=== PATIENT | female | born 1950 | race Caucasian/White ===

== ENCOUNTER 2021-02-09 22:26 | Emergency (ER) | payer OTHER ==
[~2021-02-09 22:26] MED LIST: ACETAMINOPHN-12.5 ML PO; CALCIUM + VITA1 EACH PO; CELEBREX **OUT100 MG PO; CHLORTHALIDONE25 MG PO; COZAAR 25MG TAB25 MG PO; CYMBALTA 30MG C30 MG PO; FOSAMAX70 MG PO; GLIMEPIRIDE4 MG PO; LEVAQUIN750 MG PO; NEURONTIN100 MG PO; PRAVACHOL20 M1 PO; SYNTHROID100 MCG PO; TENORMIN50 MG PO; XARELTO10 MG PO; ZOFRAN4 MG PO; ZPAK PO
[2021-02-09 23:47] LABS: BASOPHIL 0.7 % (0-2); EOSINOPHIL 2.9 % (0-7); HCT 38.5 % (37.0-47.0); HGB 12.4 g/dl (12.5-16.0); MCH 31.1 pg (25.0-31.0); MCHC 32.2 g/dL (32.0-36.0); MCV 96.5 fL (78.0-100.0); MONOCYTE 11.6 % (0-12); MPV 10.5 fL (6.0-9.5); NEUTROPHIL 70.3 % (41-80); NRBC 0; PLT 256 K/uL (150-400); RBC 3.99 M/uL (4.20-5.40); RDW 13.7 % (11.5-14.0); WBC 10.5 K/uL (4.0-10.5)
[2021-02-09 23:48] LABS: BILIRUBIN 1+ mg/dL (NEGATIVE); BLOOD NEGATIVE Ery/uL (NEGATIVE); CLARITY CLOUDY (CLEAR); COLOR ORANGE (YELLOW); GLUCOSE (U) NORMAL (NORMAL); LEUKOCYTES NEGATIVE Leu/uL (NEGATIVE); NITRITE NEGATIVE (NEGATIVE); PROTEIN TRACE (LOW) mg/dL (NEGATIVE); SPECIFIC GRAVITY 1.025 (1.001-1.030)
[2021-02-09 23:55] LABS: AMORPHOUS URATES CRYSTALS MODERATE; BACTERIA 1+; MUCOUS TRACE
[2021-02-10] MEDS ORDERED: KEFLEX250 MG PO (00:55)
== END 2021-02-10 01:10 | disposition home or self-care (01) ==
LOC: FER 22:26
PROVIDERS: Emergency Medicine
DX: N39.0 Urinary tract infection, site not specified (principal); M25.462 Effusion, left knee; I10 Essential (primary) hypertension; J44.9 Chronic obstructive pulmonary disease, unspecified; Z87.39 Personal history of other diseases of the musculoskeletal system and connective tissue; Z98.890 Other specified postprocedural states; Z88.1 Allergy status to other antibiotic agents
CPT/HCPCS: 36415; 71045; 81001; 85025; 87088

== ENCOUNTER 2021-02-19 14:42 | Emergency (ER) | payer OTHER ==
[~2021-02-19 14:42] MED LIST changes: +KEFLEX250 MG PO
[2021-02-19] MEDS ORDERED: HYDROCODON-ACE1 EAC2 PO (19:30)
== END 2021-02-19 20:15 | disposition home or self-care (01) ==
LOC: FER 14:42
DX: M97.12XA Periprosthetic fracture around internal prosthetic left knee joint, initial encounter (principal); J44.9 Chronic obstructive pulmonary disease, unspecified; I10 Essential (primary) hypertension; Z88.2 Allergy status to sulfonamides; Z91.040 Latex allergy status; Z85.3 Personal history of malignant neoplasm of breast
CPT/HCPCS: 73564; 73700

== ENCOUNTER 2021-10-29 10:24 | Emergency (ER) | payer OTHER ==
[~2021-10-29 10:24] MED LIST changes: +HYDROCODON-ACE1 EAC2 PO
[2021-10-29 12:03] LABS: BASOPHIL 1.2 % (0-2); EOSINOPHIL 1.3 % (0-7); HCT 50.5 % (37.0-47.0); HGB 16.3 g/dl (12.5-16.0); LYMPHOCYTE 26.6 % (15-48); MCH 30.6 pg (25.0-31.0); MCHC 32.3 g/dL (32.0-36.0); MCV 94.9 fL (78.0-100.0); MONOCYTE 7.7 % (0-12); MPV 9.6 fL (6.0-9.5); NEUTROPHIL 62.8 % (41-80); NRBC 0; PLT 283 K/uL (150-400); RBC 5.32 M/uL (4.20-5.40); WBC 7.8 K/uL (4.0-10.5)
[2021-10-29 12:12] LABS: BILIRUBIN 2+ mg/dL (NEGATIVE); BLOOD NEGATIVE Ery/uL (NEGATIVE); CLARITY CLEAR (CLEAR); COLOR YELLOW (YELLOW); GLUCOSE (U) NORMAL (NORMAL); LEUKOCYTES TRACE Leu/uL (NEGATIVE); NITRITE NEGATIVE (NEGATIVE); PROTEIN TRACE (LOW) mg/dL (NEGATIVE); SPECIFIC GRAVITY 1.025 (1.001-1.030); UROBILINOGEN 0.2 mg/dL (0.2-1.0)
[2021-10-29 12:18] LABS: BACTERIA 2+; MUCOUS LARGE
[2021-10-29 12:32] LABS: BILIRUBIN - TOTAL 0.4 mg/dL (0.2-1.0); BUN/CREAT RATIO (CALC) 11.1 RATIO; CREATININE 0.99 mg/dL (0.51-0.95); GLOBULIN (CALCULATION) 3.9 g/dL; POTASSIUM 3.9 mmol/L (3.5-5.1); TOTAL PROTEIN 7.9 g/dL (6.4-8.2)
[2021-11-01 08:27] LABS: EOSINOPHIL 2.9 % (0-7); HCT 47.1 % (37.0-47.0); HGB 14.8 g/dl (12.5-16.0); LYMPHOCYTE 28.3 % (15-48); MCH 30.7 pg (25.0-31.0); MCHC 31.4 g/dL (32.0-36.0); MCV 97.7 fL (78.0-100.0); MONOCYTE 8.3 % (0-12); MPV 9.6 fL (6.0-9.5); NEUTROPHIL 59.1 % (41-80); NRBC 0; PLT 231 K/uL (150-400); RBC 4.82 M/uL (4.20-5.40); RDW 14.4 % (11.5-14.0); WBC 7.1 K/uL (4.0-10.5)
[2021-11-01 08:43] LABS: BUN/CREAT RATIO (CALC) 13.8 RATIO; CREATININE 0.94 mg/dL (0.51-0.95); POTASSIUM 3.6 mmol/L (3.5-5.1)
[2021-11-01] MEDS ORDERED: PLAVIX75 MG PO (10:57)
[2021-11-01] MEDS ORDERED: LIPITOR80 MG PO (10:57)
[2021-11-01] MEDS ORDERED: ASPIRIN EC81 MG PO (10:57)
[2021-11-01] MEDS ORDERED: PROTONIX 40MG T40 MG PO (11:01)
== END 2021-11-01 11:24 | disposition home or self-care (01) ==
LOC: FER 10:24
PROVIDERS: Emergency Medicine; Emergency Medicine Emergency Medical Services
DX: I63.89 Other cerebral infarction (principal); I65.22 Occlusion and stenosis of left carotid artery; N39.0 Urinary tract infection, site not specified; I10 Essential (primary) hypertension; Z88.2 Allergy status to sulfonamides; Z91.040 Latex allergy status; Z91.048 Other nonmedicinal substance allergy status; Z20.822 Contact with and (suspected) exposure to COVID-19
CPT/HCPCS: 36415; 70450; 70544; 70551; 80048; 80053; 81001; 85025; 87088; 93005; 93880; 97166; 97530; C9113; J0696; J1200; J3360; J7030; U0002